=== PATIENT | male | born 1985 | race Caucasian/White ===

== ENCOUNTER 2022-03-14 05:55 | Day surgery (SDC) | payer MEDICAID ==
[~2022-03-14] VITALS: Ht 182.9 cm; Wt 88.5 kg
[2022-03-14] MEDS ORDERED: ACETAMINOPHEN I.V. 1000 MG 100 ML IV ONE (07:06)
[2022-03-14] MEDS ORDERED: METOCLOPRAMIDE HCL 10 MG/2 ML VIAL IVP PRN (08:30)
[2022-03-14] MEDS ORDERED: MIDAZOLAM HCL 2 MG/2 ML VIAL (VERSED) IVP PRN (08:30)
[2022-03-14] MEDS ORDERED: HYDROmorphone 1 MG/ML INJ. CARTRIDGE IVP PRN ×2 (08:30)
[2022-03-14] MEDS ORDERED: LABETALOL 100 MG/ 20ML VIAL IVP PRN (08:30)
[2022-03-14] MEDS ORDERED: MEPERIDINE HCL/PF 25 MG/ML DISP.SYRIN IVP PRN (08:30)
[2022-03-14] MEDS ORDERED: hydrALAZINE HCL 20 MG/ML VIAL IVP PRN (08:30)
[2022-03-14] MEDS ORDERED: LR 1,000 ML IV SCH (08:30)
[2022-03-14] MEDS ORDERED: METOCLOPRAMIDE HCL 10 MG/2 ML VIAL ONE (11:11)
[2022-03-14] MEDS ORDERED: NS IRRIG SOLN 1000 ML IR ONE (11:12)
[2022-03-14] MEDS ORDERED: SUGAMMADEX SODIUM 200 MG/2 ML VIAL IV ONE (11:12)
[2022-03-14] MEDS ORDERED: DEXAMETHASONE SOD PHOSPHATE 4 MG/ML VIAL ONE (11:12)
[2022-03-14] MEDS ORDERED: MUPIROCIN 2% TOPICAL OINTMENT 22 GM ONE (11:12)
[2022-03-14] MEDS ORDERED: MIDAZOLAM HCL 5 MG/ML VIAL (VERSED) IV ONE (11:12)
[2022-03-14] MEDS ORDERED: EPINEPHrine 1 MG/ML VIAL ONE (11:12)
[2022-03-14] MEDS ORDERED: LR 1,000 ML IV.SOLN IV ONE (11:12)
[2022-03-14] MEDS ORDERED: ROCURONIUM BROMIDE 10 MG/ML (ZEMURON) ONE (11:12)
[2022-03-14] MEDS ORDERED: NS 1000 ML IV.SOLN IV ONE (11:12)
[2022-03-14] MEDS ORDERED: ONDANSETRON HCL 4 MG/2 ML VIAL ONE (11:12)
[2022-03-14] MEDS ORDERED: DESFLURANE 15 MIN GAS INH ONE (11:12)
[2022-03-14] MEDS ORDERED: OXYMETAZOLINE HCL 0.05% NASAL SPRAY NS ONE (11:12)
[2022-03-14] MEDS ORDERED: fentaNYL CITRATE 250 MCG/5 ML AMP ONE (11:12)
[2022-03-14] MEDS ORDERED: LIDOCAINE 2%, 20 ML MDV ONE (11:12)
[2022-03-14] MEDS ORDERED: PROPOFOL 200MG/ 20ML VIAL (DIPRIVAN) IV ONE (11:12)
[2022-03-14] MEDS ORDERED: HYDROmorphone 1 MG/ML INJ. CARTRIDGE ONE (11:19)
[2022-03-14 13:07] VITALS: BP_SYST 117
== END 2022-03-14 14:35 | disposition home or self-care (01) ==
LOC: SDS 05:55 → SMU 05:55 → SDS 14:35
PROVIDERS: ATTEND Otolaryngology
DX: J34.2 Deviated nasal septum (principal); D38.5 Neoplasm of uncertain behavior of other respiratory organs; J34.89 Other specified disorders of nose and nasal sinuses; J33.9 Nasal polyp, unspecified; J45.909 Unspecified asthma, uncomplicated; K21.9 Gastro-esophageal reflux disease without esophagitis; F90.9 Attention-deficit hyperactivity disorder, unspecified type; Z79.899 Other long term (current) drug therapy; Z20.822 Contact with and (suspected) exposure to COVID-19
CPT/HCPCS: 30140; 30520; 31256; 31257; 36415 ×2; 87070; 87075; 87101; 87426; 87635; 88304; 88305; 88311; 88312; C1726; J0131; J0171; J1100; J1170; J2001; J2250; J2405; J2704; J2765; J3010; J3490; J7030; J7120; U0003